=== PATIENT | female | born 1995 | race Caucasian/White ===

== ENCOUNTER 2021-05-14 10:30 | Emergency (ER) | payer OTHER ==
[2021-05-14 11:10] LABS: HEMOGLOBIN 14.3 gm/dl (12.3-15.3); RED BLOOD COUNT 4.6 M/UL (4.00-5.10); WHITE BLOOD COUNT 9.6 K/UL (4.5-11.0)
[2021-05-14 11:57] LABS: BUN/CREATININE RATIO 22 (0-10)
[2021-05-14] MEDS ORDERED: MIRALAX17 GM PO (17:03)
== END 2021-05-14 17:19 | disposition home or self-care (01) ==
LOC: ER1 10:30
PROVIDERS: Emergency Medicine
DX: N83.201 Unspecified ovarian cyst, right side (principal); K59.00 Constipation, unspecified
CPT/HCPCS: 76830; 80053; 81001; 82550; 82553; 83690; 83874; 84484; 84703; 85025; 85379; 93005; 96374; 99284; J2270; J2405; Q9967